=== PATIENT | male | born 1990 | race African-American/Black ===

== ENCOUNTER 2019-04-02 15:56 | Inpatient (IN) | payer OTHER ==
[2019-04-01 20:50] VITALS: BP 130/85
[~2019-04-02] VITALS: Ht 180.3 cm; Wt 110.8 kg
[2019-04-02] MEDS ORDERED: ALBUTEROL (0.083%) 2.5MG/3ML NEB HHN STA (16:20)
[2019-04-02] MEDS ORDERED: METHYLPREDNISOLONE SOD SUCC 125 MG/2 ML VIAL IV ONE (16:30)
[2019-04-02] MEDS ORDERED: ALBUTEROL (0.083%) 2.5MG/3ML NEB HHN SCH (16:30)
[2019-04-02 16:54] LABS: CHLORIDE 108 mEq/L (98-107)
[2019-04-02 16:56] LABS: BASOPHILS % 0.5 % (0.0-2.0); EOSINOPHILS % 0.5 % (0.0-5.0); HEMATOCRIT. 39.3 % (42.0-52.0); HEMOGLOBIN. 12.9 g/dL (14.0-18.0); LYMPHOCYTES % 14.4 % (20.0-50.0); MEAN CORPUSCULAR VOLUME 82.3 fL (80.0-94.0); MEAN PLATELET VOLUME 8.3 fl (7.4-10.4); MONOCYTES % 12.2 % (2.0-8.0); NEUTROPHILS % 72.4 % (40.0-76.0); PLATELET 399 x1000/uL (130-400); RED BLOOD CELL COUNT 4.77 mill/uL (4.7-6.1); RED CELL DISTRIBUTION WIDTH 15.1 % (11.6-14.6)
[2019-04-02] MEDS ORDERED: AZITHROMYCIN 500 MG in DEXT 5% WATER 250 ML IV SCH (17:45)
[2019-04-02] MEDS ORDERED: DIPHENHYDRAMINE 50MG/ML VIAL IV PRN (18:15)
[2019-04-02] MEDS ORDERED: MAGNESIUM/ALUMINUM HYDROXIDE/SIMETHICONE 30ML UDC PO PRN (18:15)
[2019-04-02] MEDS ORDERED: IPRATROPIUM/ALBUTEROL 0.5-3(2.5)MG/3ML NEB HHN PRN (18:15)
[2019-04-02] MEDS ORDERED: DOCUSATE SODIUM 100MG CAPSULE PO PRN (18:15)
[2019-04-02] MEDS ORDERED: HYDROCODONE/ACETAMINOPHEN 5/325MG TABLET PO PRN (18:15)
[2019-04-02] MEDS ORDERED: ACETAMINOPHEN 325MG TABLET PO PRN (18:15)
[2019-04-02] MEDS ORDERED: ONDANSETRON HCL 4MG/2ML INJ IV PRN (18:15)
[2019-04-02] MEDS ORDERED: CLONIDINE 0.1MG TABLET PO PRN (18:15)
[2019-04-02 18:45] LABS: PHOSPHORUS 2.2 mg/dL (2.5-4.9)
[2019-04-02] MEDS ORDERED: POTASSIUM CHLORIDE INJ 40 MEQ in DEXT 5% WATER 250 ML IV SCH (18:45)
[2019-04-02] MEDS ORDERED: IOHEXOL-350 100 ML BOTTLE ONE (19:31)
[2019-04-02 20:45] VITALS: BP 130/81
[2019-04-02] MEDS ORDERED: DEXTROSE 50% WATER 50ML SYRINGE IV PRN (21:15)
[2019-04-02] MEDS: BLOOD SUGAR DIAGNOSTIC STRIP TEST SCH (21:50)
[2019-04-02] MEDS: GUAIFENESIN 200MG/10ML SUGAR FREE UDC PO PRN (21:56)
[2019-04-02] MEDS: INSULIN LISPRO 100 UNITS/ML SUBCUT SCH (21:59)
[2019-04-02 23:47] VITALS: BP 130/85
[2019-04-03] VITALS: BP 117/62
[2019-04-03] MEDS: GUAIFENESIN 200MG/10ML SUGAR FREE UDC PO PRN ×2 (02:30→11:49)
[2019-04-03 04:00] VITALS: BP 139/82
[2019-04-03] MEDS: BLOOD SUGAR DIAGNOSTIC STRIP TEST SCH ×3 (05:58→16:38)
[2019-04-03] MEDS: INSULIN LISPRO 100 UNITS/ML SUBCUT SCH ×3 (06:35→16:38)
[2019-04-03 06:45] LABS: HEMATOCRIT. 38.6 % (42.0-52.0); HEMOGLOBIN. 12.7 g/dL (14.0-18.0); MEAN CORPUSCULAR HEMOGLOBIN 27.1 pg (28.0-32.0); MEAN CORPUSCULAR VOLUME 82.1 fL (80.0-94.0); MEAN PLATELET VOLUME 7.6 fl (7.4-10.4); PLATELET 405 x1000/uL (130-400); RED BLOOD CELL COUNT 4.69 mill/uL (4.7-6.1); RED CELL DISTRIBUTION WIDTH 15.1 % (11.6-14.6)
[2019-04-03 07:08] LABS: CHLORIDE 107 mEq/L (98-107)
[2019-04-03 07:17] LABS: LDL CHOLESTEROL 107 mg/dL (5-100)
[2019-04-03 07:18] LABS: HDL CHOLESTEROL 35 mg/dL (40-59)
[2019-04-03 08:00] VITALS: BP 136/81
[2019-04-03 10:37] LABS: PLATELET ESTIMATE SLIGHTLY INCREASED
[2019-04-03 12:00] VITALS: BP 143/92
[2019-04-03] MEDS ORDERED: GUAIFENESIN-DM 200MG-20MG/10ML UDC PO PRN (12:30)
[2019-04-03] MEDS ORDERED: MAGNESIUM 2 G PREMIX 50 ML IV NR (13:00)
[2019-04-03 16:00] VITALS: BP 127/82
[2019-04-03] MEDS ORDERED: ALBU18HF2 IH (17:34)
[2019-04-03] MEDS ORDERED: AZIT500T5 MT (17:34)
[2019-04-03] MEDS ORDERED: PANT40TA4 MT (17:34)
[2019-04-03] MEDS ORDERED: P20 MT (17:34)
[2019-04-03] MEDS ORDERED: GUAI-740 MT (17:34)
[2019-04-03 17:49] VITALS: BP 127/82
[2019-04-03] MEDS ORDERED: BUDESONIDE 0.5MG/2ML NEB HHN SCH (18:00)
[2019-04-03] MEDS ORDERED: IPRATROPIUM/ALBUTEROL 0.5-3(2.5)MG/3ML NEB HHN SCH (18:00)
[2019-04-03] MEDS ORDERED: AZITHROMYCIN 500 MG in DEXT 5% WATER 250 ML IV SCH (18:00)
== END 2019-04-03 18:25 | disposition home or self-care (01) | DRG 812 ==
LOC: ER 16:10 → 5WST 17:45 → ENRESERV 19:50
PROVIDERS: ADMIT Internal Medicine; ATTEND Internal Medicine
DX: T40.7X1A Poisoning by cannabis (derivatives), accidental (unintentional), initial encounter (principal); J96.00 Acute respiratory failure, unspecified whether with hypoxia or hypercapnia; E83.39 Other disorders of phosphorus metabolism; J68.0 Bronchitis and pneumonitis due to chemicals, gases, fumes and vapors; E78.5 Hyperlipidemia, unspecified; Y84.8 Other medical procedures as the cause of abnormal reaction of the patient, or of later complication, without mention of misadventure at the time of the procedure; E83.42 Hypomagnesemia; F10.10 Alcohol abuse, uncomplicated; T80.92XA Unspecified transfusion reaction, initial encounter; F17.210 Nicotine dependence, cigarettes, uncomplicated; F20.9 Schizophrenia, unspecified; F31.9 Bipolar disorder, unspecified; F12.10 Cannabis abuse, uncomplicated; F15.10 Other stimulant abuse, uncomplicated; D64.9 Anemia, unspecified; Z71.6 Tobacco abuse counseling; Z87.09 Personal history of other diseases of the respiratory system; Z71.51 Drug abuse counseling and surveillance of drug abuser; Y92.89 Other specified places as the place of occurrence of the external cause
CPT/HCPCS: 36415; 71045; 71275; 80061; 82962; 83735; 83880; 84100; 84443; 84484; 85379; 93005; 94640; 99285; J0456; J1815; J2930; J3475; J3480; J7060; J7611; J7620; Q9967

== ENCOUNTER 2024-10-13 11:31 | Emergency (ER) | payer OTHER ==
[~2024-10-13] VITALS: Ht 177.8 cm; Wt 91.0 kg
[~2024-10-13 11:31] MED LIST: ALBU18HF2 IH; AZIT500T8 MT; GUAI-740 MT; P20 MT; PANT40TA51 MT
[2024-10-13] MEDS ORDERED: TETANUS, DIPHTHERIA, PERTUSSIS VAC/PF 0.5ML (>10YR OLD) IM ONE (12:00)
[2024-10-13] MEDS: MORPHINE SULFATE 4 MG/ML INJ (FOR IV/IM USE) IV ONE (12:00)
[2024-10-13] MEDS: LIDOCAINE HCL/PF 1% 10 MG/ML 5ML VIAL INFIL ONE (12:00)
[2024-10-13 13:08] VITALS: O2SAT 99
[2024-10-13] MEDS: MIDAZOLAM HCL 2 MG/2 ML VIAL IM ONE (13:08)
[2024-10-13] MEDS ORDERED: KETO10TA2 MT (14:23)
[2024-10-13] MEDS ORDERED: AMOX1TAB16 MT (14:23)
[2024-10-13 15:15] VITALS: BP 118/64; PULSE 86; RESP 16; TEMP 36.5; O2SAT 99
== END 2024-10-13 17:28 | disposition home or self-care (01) ==
LOC: ER 11:48
DX: S51.811A Laceration without foreign body of right forearm, initial encounter (principal); F12.10 Cannabis abuse, uncomplicated; F15.10 Other stimulant abuse, uncomplicated; F31.9 Bipolar disorder, unspecified; J45.909 Unspecified asthma, uncomplicated; Z79.899 Other long term (current) drug therapy; Z86.59 Personal history of other mental and behavioral disorders; W25.XXXA Contact with sharp glass, initial encounter; Y93.89 Activity, other specified; Y92.89 Other specified places as the place of occurrence of the external cause; Y99.8 Other external cause status
CPT/HCPCS: 73090; 73130; 12002; 96372; 96374; 99284; J2003; J2250; J2270; Z7610 ×3